=== PATIENT | male | born 2000 | race Hispanic/Latino ===

== ENCOUNTER 2021-03-31 09:32 | Emergency (ER) | payer SELFPAY ==
[2021-03-31] MEDS ORDERED: Lidocaine 1% w/Epinephrine 1:100K 20 ML VIAL ONE (10:56)
== END 2021-03-31 11:58 | disposition home or self-care (01) ==
LOC: ERS 09:32
DX: L02.416 Cutaneous abscess of left lower limb (principal)
CPT/HCPCS: 10060